=== PATIENT | female | born 1995 | race Caucasian/White ===

== ENCOUNTER 2016-06-05 13:44 | Emergency (ER) | payer MEDICAID, OTHER ==
[~2016-06-05] VITALS: Wt 54.5 kg
[2016-06-05] MEDS ORDERED: IBUP400T22 PO (15:56)
[2016-06-05] MEDS ORDERED: HYDROCODONE/APAP (5/325) TAB PO ONE (16:00)
--- NOTE | 2016-06-05 16:10 | ERD ---
ER Documentation Chief Complaint Date/Time DATE: 06/05/16 TIME: 15:57 Chief Complaint RIGHT THUMB INJURY HPI 20-year-old right-handed female with no significant past medical history presents to the ED complaining of a crush injury to her right hand that occurred earlier today. States that she was trying to close the car door and accidentally crushed her right thumb. States that she took Advil at 2 PM which slightly relieved her pain. States that the pain is worsened with movement. States that her nail bed is also slightly bloody. Reports that she is up-to- date with her tetanus vaccine. Denies any fever, chills, loss of sensation, loss of range of motion, weakness, numbness or tingling, other injuries. ROS All systems reviewed and are negative except as per history of present illness. Medications Home Meds Active Scripts Ibuprofen* (Motrin*) 400 Mg Tab, 400 MG PO Q6, #30 TAB Prov:YUKO KRAFT Aliza ENGLE 06/05/16 Allergies Allergies: Coded Allergies: No Known Drug Allergies (Verified Allergy, Unknown, 06/05/16) PMhx/Soc Medical and Surgical Hx: pt denies Medical Hx, pt denies Surgical Hx History of Surgery: No Anesthesia Reaction: No Hx Neurological Disorder: No Hx Respiratory Disorders: No Hx Cardiac Disorders: No Hx Psychiatric Problems: No Hx Miscellaneous Medical Probl: No Hx Alcohol Use: No Hx Substance Use: No Hx Tobacco Use: No Smoking Status: Never smoker Physical Exam Vitals Vital Signs Date Time Temp Pulse Resp B/P Pulse Ox O2 Delivery O2 Flow Rate FiO2 06/05/16 13:53 97.7 64 17 122/65 99 Physical Exam Const: [id number], well-nourished. In no acute distress. Head: Atraumatic, normocephalic Eyes: Normal Conjunctiva without injection ENT: Normal external ear, nose and mouth. Neck: Full range of motion. No meningismus. Resp: Clear to auscultation bilaterally. No wheezing, rhonchi, rales, or crackles. No accessory muscle use. No retractions. Cardio: Regular rate and rhythm, no murmurs Skin: No petechiae or rashes Back: No midline tenderness. No CVA tenderness. Ext: No cyanosis, or edema. 2 cm superficial linear laceration noted on the medial aspect of patient's right thumb. No visualization of tendons, foreign bodies. Range of motion of the PIP, DIP, IP, MCP joints of the bilateral hands. Tenderness to palpation of the right thumb nail-bed with a partial subungual hematoma noted. Cap refill less than 2 seconds. Distal pulses intact bilaterally. Neur: Awake and alert. Normal gait and coordination. Muscle strength 5/5. Sensation intact bilaterally. Psych: Normal Mood and Affect Results 24 hrs Current Medications Medications (Trade) Dose Ordered Sig/Cecilia Route PRN Reason Start Time Stop Time Status Last Admin Dose Admin Acetaminophen/ Hydrocodone Bitart (Ellsworth (5/325)) 1 tab ONCE ONCE PO 06/05/16 16:00 06/05/16 16:01 Procedures/MDM This is a 20-year-old female with no significant past medical history presents to the ED complaining of of a crush injury to her right thumb. Patient is afebrile and nontoxic-appearing. Patient has normal vital signs. Patient gave consent to clean the affected area as well as electrocauterize the right partial subungual hematoma noted of her right thumb. The partial subungual hematoma noted of her right thumb was electrocauterized without any complications or difficulties. Spontaneous blood was noted. Patient's pain has improved. Patient no longer has tenderness to palpation of the right thumbnail bed. I instructed patient that the hole made from the electrocauterizer could still have some spontaneous blood from the site. Dermabond was applied to the superficial 2 cm linear laceration noted on the medial aspect of patient's right thumb. No indications for sutures at this time. No visualization of tendons or foreign bodies. Patient has full range of motion. Patient stated that she is up-to-date with her tetanus vaccine. Patient was treated here in the ED with Ellsworth with improvement of her pain. Pending the right hand x-ray, this patient will be signed off to my supervising physician, Dr. Bee for further evaluation and treatment. Patient still has right snuffbox tenderness. If patient does not have any other fractures or dislocations noted, patient will be placed in a right thumb spica splint based on the right snuffbox tenderness noted on clinical exam. At this time a scaphoid fracture cannot be ruled out. Patient is placed in a thumb spica splint. Splint Assessment: Neurovascularly intact pre and post splint placement with good fit. Patient's extremity symptoms have stabilized while they have been evaluated in the department and are appropriate for outpatient follow up. No evidence of dislocations, compartment syndrome, neurologic injury, vascular injury, open joint, open fracture, tendon laceration, septic arthritis, osteomyelitis, DVT, foreign body, or other emergent conditions. Discharge medications: Ibuprofen Follow up with primary care physician in 2 days for a wound check. Instructed patient to return to the ED sooner for any worsening symptoms. Patient's questions were answered. Patient understood and agreed with discharge plan. Patient discharged stable. Departure Diagnosis: Primary Impression: Crushing injury of thumb, right Encounter type: initial encounter Qualified Code: S67.01XA - Crushing injury of thumb, right, initial encounter Additional Impression: Subungual hematoma of finger of right hand Encounter type: initial encounter Qualified Code: S60.10XA - Subungual hematoma of finger of right hand, initial encounter Condition: Stable Patient Instructions: Subungual Hematoma, Crush Injury, Hand/Finger Referrals: [facility] [place] YOU HAVE RECEIVED A MEDICAL SCREENING EXAM AND THE RESULTS INDICATE THAT YOU DO NOT HAVE A CONDITION THAT REQUIRES URGENT TREATMENT IN THE EMERGENCY DEPARTMENT. FURTHER EVALUATION AND TREATMENT OF YOUR CONDITION CAN WAIT UNTIL YOU ARE SEEN IN YOUR DOCTORS OFFICE WITHIN THE NEXT 1-2 DAYS. IT IS YOUR RESPONSIBILITY TO MAKE AN APPOINTMENT FOR FOLOW-UP CARE. IF YOU HAVE A PRIMARY DOCTOR --you should call your primary doctor and schedule an appointment IF YOU DO NOT HAVE A PRIMARY DOCTOR YOU CAN CALL OUR PHYSICIAN REFERRAL HOTLINE AT IF YOU CAN NOT AFFORD TO SEE A PHYSICIAN YOU CAN CHOSE FROM THE FOLLOWING [facility] [address] [facility] [address] [facility]. [facility] [address] [facility] [address] [facility] [address] [facility]. [facility]. [address] [facility] [facility] YOU HAVE RECEIVED A MEDICAL SCREENING EXAM AND THE RESULTS INDICATE THAT YOU DO NOT HAVE A CONDITION THAT REQUIRES URGENT TREATMENT IN THE EMERGENCY DEPARTMENT. FURTHER EVALUATION AND TREATMENT OF YOUR CONDITION CAN WAIT UNTIL YOU ARE SEEN IN YOUR DOCTORS OFFICE WITHIN THE NEXT 1-2 DAYS. IT IS YOUR RESPONSIBILITY TO MAKE AN APPOINTMENT FOR FOLOW-UP CARE. IF YOU HAVE A PRIMARY DOCTOR --you should call your primary doctor and schedule and appointment IF YOU DO NOT HAVE A PRIMARY DOCTOR YOU CAN CALL OUR PHYSICIAN REFERRAL HOTLINE AT . IF YOU CAN NOT AFFORD TO SEE A PHYSICIAN YOU CAN CHOSE FROM THE FOLLOWING [facility]: [facility] [address] [place] [address] [facility] [address] [place] [address] [facility] [address] [place] [address] [facility] Urgent Care 7 a.m.- 11 p.m. Every Day of the Week NO APPOINTMENT OR AUTHORIZATION NEEDED [facility] Hours: Mon-Wed 9:00 AM - 5:00 PM Additional Instructions: Seguir para arriba con mdico ortopdico porque tienes dolor al espacio de pulgar, alvarado fractura de escafoides no se puede descartar. Regrese a estas instalaciones si no se mejora lilibeth esperbamos o lilibeth le dijimos. YUKO KRAFT PA-C Jun 05, 2016 16:09
--- NOTE | 2016-06-05 16:20 | RADRPT ---
PROCEDURE: XR Hand. CLINICAL INDICATION: Right thumb injury TECHNIQUE: AP oblique and lateral views of the right hand were obtained. COMPARISON: No prior studies are available for comparison. FINDINGS: There is normal mineralization. No acute fracture or dislocation is seen. There are no significant degenerative changes. There is no significant soft tissue swelling. IMPRESSION: No acute bony abnormality. .Marifer Monteiro MD, MD Date Time Electronically viewed and signed by .Marifer Monteiro MD, on 06/05/2016 16:20 .Kamari/
== END 2016-06-05 17:35 | disposition home or self-care (01) ==
LOC: FTE 13:44
DX: S67.01XA Crushing injury of right thumb, initial encounter (principal); S60.111A Contusion of right thumb with damage to nail, initial encounter; W23.1XXA Caught, crushed, jammed, or pinched between stationary objects, initial encounter; Y92.9 Unspecified place or not applicable
CPT/HCPCS: 29125; 73130; Z7610

== ENCOUNTER 2017-07-20 21:43 | Outpatient (CLI) | END 2017-07-21 16:10 | disposition home or self-care (01) ==

== ENCOUNTER 2017-08-11 08:16 | Inpatient (IN) | END 2017-08-13 15:10 | disposition home or self-care (01) | DRG 775 ==